=== PATIENT | male | born 1970 | race Caucasian/White ===

== ENCOUNTER 2024-04-13 10:03 | Inpatient (IN) | payer OTHER ==
[~2024-04-13] VITALS: Ht 170.2 cm; Wt 85.3 kg
[2024-04-13 10:05] VITALS: BP 117/85; PULSE 105; RESP 18; TEMP 98; O2SAT 97
[2024-04-13 10:39] VITALS: O2SAT 97
[2024-04-13 11:30] LABS: BASOPHILS # (AUTO) 0.1 K/uL (0.00-0.22); BASOPHILS % (AUTO) 0.7 % (0.0-2.0); EOSINOPHILS # (AUTO) 0.1 K/uL (0-0.4); EOSINOPHILS % (AUTO) 0.6 % (0.0-4.0); HEMATOCRIT 33.3 % (36-52); HEMOGLOBIN 11.3 g/dL (12.0-18.0); LYMPHOCYTES # (AUTO) 1.5 K/uL (2.0-11.5); LYMPHOCYTES % (AUTO) 10.2 % (20.5-51.1); MEAN CORPUSCULAR HEMOGLOBIN 32 pg (27-31); MEAN CORPUSCULAR HGB CONC 34 g/dL (33-37); MEAN CORPUSCULAR VOLUME 93.5 fL (80-94); MONOCYTES # (AUTO) 0.9 K/uL (0.8-1.0); MONOCYTES % (AUTO) 5.9 % (1.7-9.3); NEUTROPHILS # (AUTO) 12.1 K/uL (1.8-7.7); NEUTROPHILS % (AUTO) 82.6 % (42.2-75.2); PLATELET COUNT (AUTO) 245 K/uL (140-450); RED BLOOD CELL COUNT(AUTO) 3.56 MIL/uL (4.20-6.10); WHITE BLOOD COUNT (AUTO) 14.6 K/uL (4.8-10.8)
[2024-04-13 11:44] LABS: ANION GAP 13.2 (8-16); CALCIUM 9.4 mg/dL (8.5-10.1); CARBON DIOXIDE 21.1 mmol/L (21-32); CREATININE 3.8 mg/dL (0.6-1.3); POTASSIUM 4.3 mmol/L (3.5-5.1)
[2024-04-13] MEDS: NACL 0.9% 1,000 ML IV ONE (12:11)
[2024-04-13] MEDS ORDERED: VANCOMYCIN 1,000 MG VIAL ONE (12:31)
[2024-04-13] MEDS: VANCOMYCIN 1,000 MG in DEXTROSE 5% 250 ML IV ONE (13:00)
[2024-04-13 13:58] LABS: APPEARANCE,URINE SLIGHTLY HAZY (CLEAR); BILIRUBIN,URINE NEGATIVE (NEGATIVE); BLOOD, URINE 1+ (NEGATIVE); COLOR,URINE YELLOW (YELLOW); LEUKOCYTE ESTERASE ,URINE NEGATIVE (NEGATIVE); NITRITE, URINE NEGATIVE (NEGATIVE); PROTEIN,URINE 3+ (NEGATIVE); UGLUCOSE 1+ (NEGATIVE); UROBILINOGEN,URINE 0.2 EU/dL (0.2 - 1)
[2024-04-13 14:00] LABS: BACTERIA,URINE 1+ /HPF (None Seen); MUCUS,URINE None Seen /LPF (None Seen); RBC,URINE 0-5 /HPF (0-5); SQUAMOUS EPITHELIAL CELL,UR 0-3 (FEW) /LPF (0-3 (FEW)); WBC,URINE 0-5 /HPF (0-5)
[2024-04-13] MEDS ORDERED: METF1TAB1 PO (14:18)
[2024-04-13] MEDS ORDERED: CHOL500022 PO (14:18)
[2024-04-13] MEDS ORDERED: LEVO0.179 PO (14:18)
[2024-04-13] MEDS ORDERED: ATOR80TA27 PO (14:18)
[2024-04-13] MEDS ORDERED: INSU100I7 SUBQ (14:18)
[2024-04-13] MEDS ORDERED: [UNRECOGNIZED DRUG - CODE] PO (14:18)
[2024-04-13] MEDS ORDERED: LISI10TA30 PO (14:18)
[2024-04-13] MEDS ORDERED: hydrALAZINE 20 MG/ML VIAL IVP PRN (14:55)
[2024-04-13] MEDS ORDERED: LORazepam 1 MG TAB PO PRN (14:55)
[2024-04-13] MEDS ORDERED: DEXTROSE 50% 50 ML SYR IVP PRN (14:55)
[2024-04-13] MEDS ORDERED: ONDANSETRON 4 MG/2 ML VIAL IVP PRN (14:55)
[2024-04-13] MEDS ORDERED: VANCOMYCIN PER PHARMACY MC PRN (15:00)
[2024-04-13] MEDS: NACL 0.9% 1,000 ML IV SCH (15:18)
[2024-04-13 15:20] VITALS: O2SAT 99
[2024-04-13] MEDS: BLOOD GLUCOSE MONITORING 1 DEV DEV FS SCH (16:45)
[2024-04-13] MEDS: INSULIN LISPRO SLIDING SCALE 100 UNITS/ML VIAL SUBQ PRN (16:47)
[2024-04-13] MEDS ORDERED: PIPERACILLIN/TAZOBACTAM 2.25 GM VIAL IV ONE (18:08)
[2024-04-13] MEDS: PIPERACILLIN/TAZOBACTAM 2.25 GM in DEXTROSE 5% 50 ML IV SCH (18:09)
[2024-04-13] MEDS ORDERED: PIPERACILLIN/TAZOBACTAM 3.375 GM in DEXTROSE 5% 50 ML IV SCH (21:00)
[2024-04-13] MEDS: INSULIN LANTUS 100 UNITS/ML 10 ML VIAL SUBQ SCH (21:00)
[2024-04-14] MEDS ORDERED: PIPERACILLIN/TAZOBACTAM 2.25 GM VIAL IV ONE ×3 (01:10→13:15)
[2024-04-14 07:56] LABS: BASOPHILS # (AUTO) 0.1 K/uL (0.00-0.22); BASOPHILS % (AUTO) 0.6 % (0.0-2.0); EOSINOPHILS # (AUTO) 0.2 K/uL (0-0.4); EOSINOPHILS % (AUTO) 1.4 % (0.0-4.0); HEMATOCRIT 32.8 % (36-52); HEMOGLOBIN 11.2 g/dL (12.0-18.0); LYMPHOCYTES # (AUTO) 1.6 K/uL (2.0-11.5); LYMPHOCYTES % (AUTO) 11.4 % (20.5-51.1); MEAN CORPUSCULAR HEMOGLOBIN 32 pg (27-31); MEAN CORPUSCULAR HGB CONC 34 g/dL (33-37); MEAN CORPUSCULAR VOLUME 94.1 fL (80-94); MONOCYTES # (AUTO) 0.9 K/uL (0.8-1.0); MONOCYTES % (AUTO) 6.7 % (1.7-9.3); NEUTROPHILS # (AUTO) 11.2 K/uL (1.8-7.7); NEUTROPHILS % (AUTO) 79.9 % (42.2-75.2); PLATELET COUNT (AUTO) 254 K/uL (140-450); RED BLOOD CELL COUNT(AUTO) 3.49 MIL/uL (4.20-6.10); WHITE BLOOD COUNT (AUTO) 14.1 K/uL (4.8-10.8)
[2024-04-14 08:20] LABS: ALBUMIN 2.1 g/dL (3.4-5.0); CALCIUM 9.3 mg/dL (8.5-10.1); CARBON DIOXIDE 21.2 mmol/L (21-32); CREATININE 3.1 mg/dL (0.6-1.3); POTASSIUM 4.2 mmol/L (3.5-5.1); TOTAL BILIRUBIN 0.7 mg/dL (0.0-1.0); TOTAL PROTEIN, SERUM 7.8 g/dL (6.4-8.2)
[2024-04-14] MEDS: DOCUSATE SODIUM 100 MG GELCAP PO SCH (10:17)
[2024-04-14] MEDS: PANTOPRAZOLE 40 MG INJ VIAL IVP SCH (10:17)
[2024-04-14] MEDS ORDERED: VANCOMYCIN 1,000 MG VIAL ONE (10:33)
[2024-04-14] MEDS: VANCOMYCIN 1,000 MG in NACL 0.9% 250 ML IV SCH (10:46)
[2024-04-14 14:19] VITALS: PULSE 77; RESP 18; O2SAT 98
[2024-04-14] MEDS ORDERED: LIDOCAINE MPF 2% 100 MG/5 ML VIAL INJ SCH (14:50)
[2024-04-14 16:00] VITALS: BP 135/91; PULSE 83; RESP 19; TEMP 99.6; O2SAT 97
[2024-04-14 20:00] VITALS: BP 110/65; PULSE 97; RESP 18; TEMP 98.1; O2SAT 98
[2024-04-14] MEDS: INSULIN LANTUS 100 UNITS/ML 10 ML VIAL SUBQ SCH (20:40)
[2024-04-14] MEDS: ZOLPIDEM 5 MG TAB PO PRN (20:48)
[2024-04-15] VITALS (10 sets, daily range): BP systolic 83–110; BP diastolic 40–65; PULSE 71–97; RESP 15–23; TEMP 97.7–98.1; O2SAT 98–100
[2024-04-15] MEDS ORDERED: NACL 0.9% 500 ML IV ONE (05:50)
[2024-04-15] MEDS: NACL 0.9% 1,000 ML IV ONE (06:00)
[2024-04-15 06:20] LABS: ANION GAP 14.6 (8-16); CALCIUM 8.2 mg/dL (8.5-10.1); CARBON DIOXIDE 19.8 mmol/L (21-32); POTASSIUM 5.4 mmol/L (3.5-5.1)
[2024-04-15] MEDS: LEVOTHYROXINE 0.075 MG, LEVOTHYROXINE 0.1 MG PO SCH (06:30)
[2024-04-15 06:31] LABS: CREATININE 4.5 mg/dL (0.6-1.3)
[2024-04-15 06:38] LABS: BASOPHILS # (AUTO) 0.1 K/uL (0.00-0.22); BASOPHILS % (AUTO) 0.6 % (0.0-2.0); EOSINOPHILS % (AUTO) 0.2 % (0.0-4.0); HEMATOCRIT 22.2 % (36-52); LYMPHOCYTES % (AUTO) 12.1 % (20.5-51.1); MEAN CORPUSCULAR HEMOGLOBIN 33 pg (27-31); MEAN CORPUSCULAR HGB CONC 34 g/dL (33-37); MEAN CORPUSCULAR VOLUME 95.7 fL (80-94); MONOCYTES # (AUTO) 1.2 K/uL (0.8-1.0); MONOCYTES % (AUTO) 7.3 % (1.7-9.3); NEUTROPHILS # (AUTO) 12.8 K/uL (1.8-7.7); NEUTROPHILS % (AUTO) 79.8 % (42.2-75.2); PLATELET COUNT (AUTO) 244 K/uL (140-450); RED BLOOD CELL COUNT(AUTO) 2.32 MIL/uL (4.20-6.10); WHITE BLOOD COUNT (AUTO) 16.1 K/uL (4.8-10.8)
[2024-04-15 06:53] LABS: INR 0.94 (0.8-1.2); PROTHROMBIN TIME 9.9 secs (10.8-13.4)
[2024-04-15 08:04] LABS: HEMOGLOBIN 7.6 g/dL (12.0-18.0)
[2024-04-15] MEDS: ATORVASTATIN 80 MG TAB PO SCH (08:52)
[2024-04-15] MEDS: ACETAMINOPHEN 325 MG TAB PO PRN (08:54)
[2024-04-15] MEDS: INSULIN LANTUS 100 UNITS/ML 10 ML VIAL SUBQ SCH (08:59)
[2024-04-15] MEDS ORDERED: NON-FORMULARY ITEM (Levothyroxine Sodium 1 TAB) PO SCH (09:00)
[2024-04-15] MEDS ORDERED: lisinopriL 10 MG TAB PO SCH (09:00)
[2024-04-15] MEDS: VANCOMYCIN 1,000 MG in NACL 0.9% 250 ML IV SCH (10:57)
[2024-04-15 13:46] LABS: URINE TPRO CREAT RATIO 5.3 (0-0.20)
[2024-04-15] MEDS: SODIUM ZIRCONIUM CYCLOSILICATE 10 GM POWD.PACK PO ONE (14:40)
[2024-04-15] MEDS: FUROSEMIDE 40 MG/4 ML VIAL IVP SCH (14:51)
[2024-04-15 18:06] LABS: HEMATOCRIT 22.9 % (36-52); HEMOGLOBIN 7.6 g/dL (12.0-18.0)
[2024-04-15 18:30] LABS: ANION GAP 19.6 (8-16); CALCIUM 7.9 mg/dL (8.5-10.1); CARBON DIOXIDE 14.8 mmol/L (21-32); POTASSIUM 4.4 mmol/L (3.5-5.1)
[2024-04-15 18:33] LABS: CREATININE 5.6 mg/dL (0.6-1.3)
[2024-04-16] VITALS (10 sets, daily range): BP systolic 87–114; BP diastolic 49–76; PULSE 3–83; RESP 16–19; TEMP 96.7–98; O2SAT 97–100
[2024-04-16] MEDS: LEVOTHYROXINE 0.075 MG TAB ONE ×2 (05:44→06:17)
[2024-04-16 06:01] LABS: MEAN CORPUSCULAR HEMOGLOBIN 32 pg (27-31); MEAN CORPUSCULAR HGB CONC 35 g/dL (33-37); MEAN CORPUSCULAR VOLUME 92.7 fL (80-94); PLATELET COUNT (AUTO) 207 K/uL (140-450); RED BLOOD CELL COUNT(AUTO) 1.85 MIL/uL (4.20-6.10); RED CELL DISTRIBUTION WIDTH 13.8 % (11.6-13.7); WHITE BLOOD COUNT (AUTO) 12.1 K/uL (4.8-10.8)
[2024-04-16] MEDS: LEVOTHYROXINE 0.1 MG TAB ONE (06:18)
[2024-04-16 06:20] LABS: ANION GAP 18.3 (8-16); CALCIUM 7.8 mg/dL (8.5-10.1); CARBON DIOXIDE 15.8 mmol/L (21-32); POTASSIUM 4.1 mmol/L (3.5-5.1)
[2024-04-16 06:23] LABS: CREATININE 6.3 mg/dL (0.6-1.3)
[2024-04-16 06:24] LABS: HEMATOCRIT 17.2 % (36-52)
[2024-04-16 06:45] LABS: EOSINOPHILS % (MANUAL) 2 % (0-4); LYMPHOCYTES % (MANUAL) 17 % (20-46); MONOCYTES % (MANUAL) 5 % (5-12)
[2024-04-16 06:46] LABS: PLATELET ESTIMATE ADEQUATE
[2024-04-16] MEDS: HYDROmorphone 1 MG/ML AMP IVP PRN (08:02)
[2024-04-16] MEDS ORDERED: IRON SUCROSE COMPLEX 100 MG/5 ML VIAL IVP SCH (09:00)
[2024-04-16] MEDS ORDERED: NON ADHERENT DRESSING TP PRN (10:20)
[2024-04-16] MEDS: SODIUM FERRIC GLUCONATE IV SCH (11:15)
[2024-04-16] MEDS: NACL 0.9% IV SCH (11:15)
[2024-04-16] MEDS: FLUoxetine 20 MG CAP PO SCH (13:00)
[2024-04-16] MEDS: NON ADHERENT DRESSING TP SCH (13:29)
[2024-04-16] MEDS: SODIUM BICARBONATE 8.4% 75 MEQ in NACL 0.45% 1,000 ML IV SCH (13:59)
[2024-04-16 14:42] LABS: HEMATOCRIT 21.6 % (36-52); HEMOGLOBIN 7.4 g/dL (12.0-18.0)
[2024-04-16] MEDS ORDERED: GABAPENTIN 300 MG CAP PO SCH (21:00)
[2024-04-17] VITALS: BP 111/76; PULSE 75; RESP 18; TEMP 97.4; O2SAT 97
[2024-04-17 04:00] VITALS: BP 100/63; PULSE 65; RESP 18; TEMP 97.4; O2SAT 100
[2024-04-17] MEDS: LEVOTHYROXINE 0.075 MG TAB ONE ×2 (05:37→05:39)
[2024-04-17] MEDS: LEVOTHYROXINE 0.1 MG TAB ONE (05:39)
[2024-04-17 07:19] LABS: BASOPHILS # (AUTO) 0.1 K/uL (0.00-0.22); BASOPHILS % (AUTO) 0.9 % (0.0-2.0); EOSINOPHILS # (AUTO) 0.2 K/uL (0-0.4); EOSINOPHILS % (AUTO) 1.8 % (0.0-4.0); HEMATOCRIT 20.4 % (36-52); LYMPHOCYTES # (AUTO) 1.5 K/uL (2.0-11.5); LYMPHOCYTES % (AUTO) 16.3 % (20.5-51.1); MEAN CORPUSCULAR HEMOGLOBIN 32 pg (27-31); MEAN CORPUSCULAR HGB CONC 35 g/dL (33-37); MEAN CORPUSCULAR VOLUME 91.5 fL (80-94); MONOCYTES # (AUTO) 0.5 K/uL (0.8-1.0); MONOCYTES % (AUTO) 5.1 % (1.7-9.3); NEUTROPHILS # (AUTO) 6.8 K/uL (1.8-7.7); NEUTROPHILS % (AUTO) 75.9 % (42.2-75.2); PLATELET COUNT (AUTO) 247 K/uL (140-450); RED BLOOD CELL COUNT(AUTO) 2.23 MIL/uL (4.20-6.10); RED CELL DISTRIBUTION WIDTH 14.1 % (11.6-13.7)
[2024-04-17 07:25] LABS: ANION GAP 19.1 (8-16); CALCIUM 8.2 mg/dL (8.5-10.1); POTASSIUM 4.1 mmol/L (3.5-5.1)
[2024-04-17 07:34] LABS: HEMOGLOBIN 7.1 g/dL (12.0-18.0)
[2024-04-17 07:45] LABS: CREATININE 6.7 mg/dL (0.6-1.3)
[2024-04-17 08:00] VITALS: BP 104/72; PULSE 69; PULSE 74; PULSE 75; PULSE 86; RESP 18; RESP 19; TEMP 97.3; TEMP 98.4; O2SAT 97; O2SAT 98
[2024-04-17] MEDS ORDERED: BENZOCAINE/MENTHOL 1 LOZ MM PRN (08:45)
[2024-04-17] MEDS: BENZOCAINE/MENTHOL 1 LOZ MM ONE (08:53)
[2024-04-17] MEDS ORDERED: FLUoxetine 20 MG CAP PO SCH (09:00)
[2024-04-17] MEDS ORDERED: SODIUM FERRIC GLUCONATE 125 MG in NACL 0.9% 100 ML IV SCH (10:49)
[2024-04-17 12:00] VITALS: BP 128/83; PULSE 65; RESP 18; TEMP 98.7; O2SAT 96
[2024-04-17 16:00] VITALS: BP 128/83; PULSE 69; RESP 18; TEMP 98.7; O2SAT 100
[2024-04-17] MEDS ORDERED: VANCOMYCIN PER PHARMACY MC PRN (16:50)
[2024-04-17 20:00] VITALS: BP 160/88; PULSE 69; PULSE 74; RESP 18; RESP 20; TEMP 97.6; O2SAT 97
[2024-04-18 06:42] LABS: BASOPHILS # (AUTO) 0.1 K/uL (0.00-0.22); BASOPHILS % (AUTO) 0.7 % (0.0-2.0); EOSINOPHILS # (AUTO) 0.2 K/uL (0-0.4); EOSINOPHILS % (AUTO) 1.9 % (0.0-4.0); HEMATOCRIT 20.3 % (36-52); HEMOGLOBIN 7.3 g/dL (12.0-18.0); LYMPHOCYTES # (AUTO) 1.9 K/uL (2.0-11.5); LYMPHOCYTES % (AUTO) 20.8 % (20.5-51.1); MEAN CORPUSCULAR HEMOGLOBIN 32 pg (27-31); MEAN CORPUSCULAR HGB CONC 36 g/dL (33-37); MONOCYTES # (AUTO) 0.7 K/uL (0.8-1.0); MONOCYTES % (AUTO) 7.9 % (1.7-9.3); NEUTROPHILS # (AUTO) 6.3 K/uL (1.8-7.7); NEUTROPHILS % (AUTO) 68.7 % (42.2-75.2); PLATELET COUNT (AUTO) 302 K/uL (140-450); RED BLOOD CELL COUNT(AUTO) 2.26 MIL/uL (4.20-6.10); RED CELL DISTRIBUTION WIDTH 13.8 % (11.6-13.7); WHITE BLOOD COUNT (AUTO) 9.2 K/uL (4.8-10.8)
[2024-04-18] MEDS: LEVOTHYROXINE 0.075 MG TAB ONE (06:42)
[2024-04-18] MEDS: LEVOTHYROXINE 0.1 MG TAB ONE (06:45)
[2024-04-18 07:29] LABS: CALCIUM 8.3 mg/dL (8.5-10.1)
[2024-04-18 07:53] LABS: CREATININE 6.1 mg/dL (0.6-1.3)
[2024-04-18 08:00] VITALS: PULSE 72; RESP 18; TEMP 98.5; O2SAT 98
[2024-04-18] MEDS: VANCOMYCIN HCL 750 MG in DEXTROSE 5% 250 ML IV SCH (10:16)
[2024-04-18] MEDS: SODIUM FERRIC GLUCONATE 125 MG in NACL 0.9% 100 ML IV SCH (14:14)
[2024-04-18 20:00] VITALS: PULSE 70; RESP 18; TEMP 98.4; O2SAT 98
[2024-04-19] MEDS: LEVOTHYROXINE 0.075 MG TAB ONE (06:35)
[2024-04-19] MEDS: LEVOTHYROXINE 0.1 MG TAB ONE (06:35)
[2024-04-19 08:00] VITALS: PULSE 58; RESP 18; TEMP 98.2; O2SAT 99
[2024-04-19 08:00] LABS: ANION GAP 16.5 (8-16); CARBON DIOXIDE 20.2 mmol/L (21-32); POTASSIUM 3.7 mmol/L (3.5-5.1)
[2024-04-19 08:03] LABS: CREATININE 5.4 mg/dL (0.6-1.3)
[2024-04-19 08:33] VITALS: BP 132/89; PULSE 58; RESP 18; TEMP 98.2; O2SAT 99
[2024-04-19] MEDS ORDERED: AMOX1TAB7 PO (15:24)
[2024-04-19 15:34] VITALS: BP 132/89; PULSE 58; RESP 18; TEMP 98.2
[2024-04-19 16:27] VITALS: BP 147/99; PULSE 58; RESP 18; TEMP 99.8; O2SAT 97
== END 2024-04-19 16:29 | disposition home health service (06) | DRG 720 ==
LOC: MED 10:03 → MMU 14:53 → MTU 04-14 06:31 → MMU 04-14 08:12 → MTU 04-14 13:10 → MIC 04-15 06:50 → MTU 04-16 18:15
PROVIDERS: ADMIT Student in an Organized Health Care Education/Training Program; ATTEND Student in an Organized Health Care Education/Training Program
PROC: 0H9AXZZ Drainage of Inguinal Skin, External Approach (ICD-10-PCS; principal; 2024-04-14)
PROC: 30233N1 Transfusion of Nonautologous Red Blood Cells into Peripheral Vein, Percutaneous Approach (ICD-10-PCS; 2024-04-15)
DX: A41.9 Sepsis, unspecified organism (principal); N17.0 Acute kidney failure with tubular necrosis; R65.21 Severe sepsis with septic shock; E43 Unspecified severe protein-calorie malnutrition; L02.214 Cutaneous abscess of groin; D62 Acute posthemorrhagic anemia; E87.1 Hypo-osmolality and hyponatremia; L03.314 Cellulitis of groin; I12.9 Hypertensive chronic kidney disease with stage 1 through stage 4 chronic kidney disease, or unspecified chronic kidney disease; E11.22 Type 2 diabetes mellitus with diabetic chronic kidney disease; N18.9 Chronic kidney disease, unspecified; E03.9 Hypothyroidism, unspecified; E78.5 Hyperlipidemia, unspecified; E87.5 Hyperkalemia; Z79.4 Long term (current) use of insulin; Z68.29 Body mass index [BMI] 29.0-29.9, adult; E11.65 Type 2 diabetes mellitus with hyperglycemia
CPT/HCPCS: 10060; 36415; 36430; 72192; 76881; 80048; 80053; 80202; 81001; 82570; 82948; 83036; 83605; 85018; 85025; 85610; 85730; 86886; 86900; 86901; 86920; 87040; 87070; 87075; 87081; 87086; 87205; 96365; 96372; 97116; 97163-GP; 97530; 99291; J1170; J1644; J1756; J1815; J1940; J2001; J2470; J2543; J2916; J3370; J3490; J7030; J7060; P9016; Q0092